=== PATIENT | female | born 1990 | race African-American/Black ===

== ENCOUNTER 2023-12-21 09:54 | Emergency (ER) | payer OTHER, SELFPAY ==
[2023-12-21 09:56] VITALS: BP 168/108; PULSE 95; RESP 18; TEMP 36.6; O2SAT 100
--- NOTE | 2023-12-21 10:24 | ED.EYEPROB ---
HPI - Eye Problem General Chief complaint: Eye Problems Stated complaint: left eye swelling Time Seen by Provider: 12/21/23 10:14 History of Present Illness HPI Narrative: 33-year-old female presents to emergency department for left eyelid swelling that started this morning. Patient states a few days ago she developed 2 styes to her left eyelid and then this morning woke up with a generalized swelling to her eyelid. She is reporting some tenderness to the lid but denies pain in her eye, pain with extraocular movements, eye redness. She is reporting some clear tearing from the eyelid. She denies fever, itchiness, vision changes. Related Data Home Medications Medication Instructions Recorded Confirmed metformin 500 mg tablet,extended ea PO 11/06/22 04/09/23 release 24 hr dulaglutide 4.5 mg/0.5 mL 4.5 mg subcut WEEKLY 02/26/23 04/09/23 [facility] Allergies Allergy/AdvReac Type Severity Reaction Status Date / Time No Known Allergies Allergy Verified 04/09/23 10:02 Review of Systems Review of Systems: CONSTITUTIONAL: Denies fever, chills, or sweats. EYES: See HPI ENT: Denies rhinorrhea, congestion, sore throat, or otalgia. CARDIOVASCULAR: Denies chest pain, palpitations, or edema. RESPIRATORY: Denies cough or dyspnea. GASTROINTESTINAL: Denies abdominal pain, nausea, vomiting, or diarrhea. GENITOURINARY: Denies dysuria or hematuria. SKIN: Denies rash or itching. MUSCULOSKELETAL: Denies back pain, joint pain, or myalgia. NEUROLOGIC: Denies headache, numbness, or weakness. PSYCHIATRIC: Denies anxiety or depression. [facility] Past Medical History Medical History Asthma Diabetes Family History Family History Grandparent Asthma Diabetes mellitus Hypertension Daughter Asthma Sibling Hypertension Social History Social History Social History: caffeine-occasionally Smoking status: Former smoker Tobacco type: e-cigarettes/vaping Alcohol intake: never Substance use: never Lack of Transportation: No Lack of Food: Never True Current Housing: Decline to Answer Concerned About Future Housing: No Difficulty Paying Gas/Electric Bills: YES Difficulty Paying for Meds: No Currently Unemployed: No Education: High School Diploma/GED Difficulty w/ Childcare or Family Care: No Exam Narrative: GENERAL: Well-appearing, well-nourished, and in no acute distress. HEAD: Normocephalic, atraumatic. EYES: PERRLA and EOMI. Left eye upper lid edematous with a hordeolum to the mid lash line and outer lash line. No crusting to lash line. No proptosis or chemosis, no erythema to the conjunctivae. No surrounding erythema. No pain with EOMs. No ophthalmoplegia or globe displacement. Fluorescein staining shows no abrasions or lesions. ENT: Nares clear, no rhinorrhea or epistaxis. Mucous membranes moist. Bilateral TMs are vidal nonbulging with normal canals. NECK: Supple. CHEST: Clear to auscultation. No respiratory distress. HEART: Regular rate and rhythm. No murmur heard. Normal peripheral pulses. EXTREMITIES: Normal range of motion. No edema. SKIN: Warm, dry, no rash. NEURO: No focal deficits. Alert and oriented x3 Course Vital Signs Vital signs: Vital Signs Temperature 97.8 F 12/21/23 09:56 Pulse Rate 95 12/21/23 09:56 Respiratory Rate 18 12/21/23 09:56 Blood Pressure 168/108 H 12/21/23 09:56 Pulse Oximetry 100 12/21/23 09:56 Oxygen Delivery Room Air 12/21/23 09:56 Temperature 97.8 F 12/21/23 09:56 Pulse Rate 95 12/21/23 09:56 Respiratory Rate 18 12/21/23 09:56 Blood Pressure 168/108 H 12/21/23 09:56 Pulse Oximetry 100 12/21/23 09:56 Oxygen Delivery Room Air 12/21/23 09:56 MDM - Eye Problem MDM Narrative Medical decision making na
[2023-12-21 11:25] VITALS: BP 123/71; PULSE 65; RESP 18; O2SAT 100
[2023-12-21 11:29] VITALS: BP 118/69; PULSE 71; RESP 17; TEMP 36.8; O2SAT 100
== END 2023-12-21 11:29 | disposition home or self-care (01) ==
PROVIDERS: Emergency Provider Physician Assistant; PCP Physician Assistant
DX: H01.004 Unspecified blepharitis left upper eyelid (principal); H00.014 Hordeolum externum left upper eyelid; E11.9 Type 2 diabetes mellitus without complications; J45.909 Unspecified asthma, uncomplicated; Z87.891 Personal history of nicotine dependence; Z79.84 Long term (current) use of oral hypoglycemic drugs; Z79.85 Long-term (current) use of injectable non-insulin antidiabetic drugs
CPT/HCPCS: 99283

== ENCOUNTER 2025-02-04 11:13 | Outpatient (CLI) | payer OTHER, SELFPAY ==
--- OUTSIDE RECORDS SUMMARY | 2025-02-04 11:16 | XMS_ITS | Data Portability ---
Author Organization [facility] [email or web address], Main Office Address [address] [place] [address] Assessment No assessment recorded. Plan of Treatment Reminders Order Date Submit Date Provider Last Modified By Organization Details Last Modified Time Details Appointments None recorded. Lab hemoglobin A1C, fingerstick 2022 023 [email or web address] 200 [facility] [address] Nick[address] Barriga, [place], [address], 3 18:03:20 Referral None recorded. Procedures None recorded. Surgeries None recorded. Imaging None recorded. Medication Orders erythromyci n 5 mg/gram (0.5 %) eye ointment 2023 024 [facility] [address], [address], 4 10:52:37 phentermine 15 mg capsule 2023 024 [facility] [address], [address], 4 11:20:16 ciprofloxac in 500 mg tablet 2023 024 [id number], [address] [facility], [place], [place], [id number], 4 11:07:27 alcohol swabs 2023 024 [facility] [address], [address], 4 15:43:45 Trulicity 3 mg/0.5 mL subcutaneou s pen injector 2023 024 [facility] [address] In [facility], [address] [place] [address], [address], 4 15:45:00 phentermine 37.5 mg tablet 2023 024 [facility] [address] In [facility], [address] [place] [address], [address], 4 15:40:42 phentermine 37.5 mg tablet 2022 023 [facility] [address] In [facility], [address] [place] [address], [address], 3 15:47:06 phentermine 37.5 mg tablet 2022 023 [facility] [address] In [facility], [address] [place] [address], [address], 3 15:48:23 Patient TargetsNo targets recorded. Patient Instructions Encounter Date Encounter Id Patient Instructions Last Modified By Organization Details Last Modified Time 08/15/2023 [id number] walk in here in5 to 7 days , we will check BP free [email or web address] Not available 08/27/2023 18:04:01 Reason for Referral None Reported. Results Created Date Observation Date Name Description Value Unit Range Abnormal Flag Note LastModifiedBy Organization Detail LastModifiedTime 08/15/2008/15/2023 hemog lobin A1C, finge rstic k HgbA1C 5.6 Not Available [facility] [address] Barriga, [place], [address], 08/15/2023 15:48:51 05/08/20 24 05/08/2024 COMPR EHENS LAWRENCE METAB OLIC PANEL sodium 135 mmol/ L 137-14 5 low Not Available [facility] (Lab) [address] [place], [address], 05/08/2024 10:02:50 05/08/20 24 05/08/2024 COMPR EHENS LAWRENCE METAB OLIC PANEL potassium 3.8 mmol/ L 3.5-5. 1 Not Available [facility] (Lab) [address] [place], [address], 05/08/2024 10:02:50 05/08/20 24 05/08/2024 COMPR EHENS LAWRENCE METAB OLIC PANEL chloride 107 mmol/ L 98-107 Not Available [facility] (Lab) [address] [place], [address], 05/08/2024 10:02:50 05/08/20 24 05/08/2024 COMPR EHENS LAWRENCE METAB OLIC PANEL carbon dioxide 26 mmol/ L 22-30 Not Available [facility] (Lab) [address] [place], [address], 05/08/2024 10:02:50 05/08/20 24 05/08/2024 COMPR EHENS LAWRENCE METAB OLIC PANEL anion gap 5.8 mmol/ L 14-22 low Not Available [facility] (Lab) [address] [place], [address], 05/08/2024 10:02:50 05/08/20 24 05/08/2024 COMPR EHENS LAWRENCE METAB OLIC PANEL glucose 95 mg/dL 70-99 Not Available [facility] (Lab) [address] [place], [address], 05/08/2024 10:02:50 05/08/20 24 05/08/2024 COMPR EHENS LAWRENCE METAB OLIC PANEL BUN 12 mg/dL 8-19 Not Available [facility] (Lab) [address] [place], [address], 05/08/2024 10:02:50 05/08/20 24 05/08/2024 COMPR EHENS LAWRENCE METAB OLIC PANEL creatinine 0.69 mg/dL 0.66-1 .25 Not Available [facility] (Lab) [address] [place], [address], 05/08/2024 10:02:50 05/08/20 24 05/08/2024 COMPR EHENS LAWRENCE METAB OLIC PANEL GFR >60 Refer ence Range : [place] ge GFR Healt hy Adult : >60 mL/mi n/1.7 3 m2 Chron ic Kidne y Disea se: 15-60 mL/mi n/1.7 3 m2 Kidne y Failu re: <15/m L/min /1.73 m2 www.n iddk. nih.g ov The MDRD study equat ion has not been valid ated in child freedom <18 years of age; pregn ant women ; the elder ly >85 years of age; or in some racia l or ethni c subgr oups, such as Hisar nics. Outsi de the valid ated tiffany eters , estim ated GFR is less accur ate, requi ring clini fernandez judgm ent on a case- by-ca se basis . Clini fernandez inter preta tion for other races and ages must be made by the clini danyell. The MDRD study equat ion has not been valid ated for the evalu ation of serum creat inine relat ed to nutri nubia l statu s or medic ation usage . For perso ns <18 years of age, a pedia tric GFR calcu lator is avail able on the F websi te: https ://ww w.kid girish.o rg/pr ofess ional s/kdo qi/gf r_cal culat or Not Available [facility] (Lab) [address] [place], [address], 05/08/2024 10:02:50 05/08/20 24 05/08/2024 COMPR EHENS LAWRENCE METAB OLIC PANEL alkaline phosphatase 56 U/L 38-126 Not Available [facility] (Lab) [address] [place], [address], 05/08/2024 10:02:50 05/08/20 24 05/08/2024 COMPR EHENS LAWRENCE METAB OLIC PANEL alanine aminotransfe rase 15 U/L 0-35 Not Available [facility] (Lab) [address] [place], [address], 05/08/2024 10:02:50 05/08/20 24 05/08/2024 COMPR EHENS LAWRENCE METAB OLIC PANEL aspartate aminotransfe rase 23 U/L 15-37 Not Available [facility] (Lab) [address] [place], [address], 05/08/2024 10:02:50 05/08/20 24 05/08/2024 COMPR EHENS LAWRENCE METAB OLIC PANEL bilirubin, total 0.50 mg/dL 0.20-1 .30 Not Available [facility] (Lab) [address] [place], [address], 05/08/2024 10:02:50 05/08/20 24 05/08/2024 COMPR EHENS LAWRENCE METAB OLIC PANEL calcium 8.6 mg/dL 8.4-10 .2 Not Available [facility] (Lab) [address] [place], [address], 05/08/2024 10:02:50 05/08/20 24 05/08/2024 COMPR EHENS LAWRENCE METAB OLIC PANEL total protein 6.9 g/dL 6.3-8. 2 Not Available [facility] (Lab) [address] [place], [address], 05/08/2024 10:02:50 05/08/20 24 05/08/2024 COMPR EHENS LAWRENCE METAB OLIC PANEL albumin 3.7 g/dL 3.4-5. 0 Not Available [facility] (Lab) [address] [place], [address], 05/08/2024 10:02:50 05/08/20 24 05/08/2024 COMPR EHENS LAWRENCE METAB OLIC PANEL globulin 3.2 g/dL 2.6-4. 2 Not Available [facility] (Lab) [address] [place], [address], 05/08/2024 10:02:50 05/08/20 24 05/08/2024 COMPR EHENS LAWRENCE METAB OLIC PANEL A/G ratio 1.2 ratio 1.0-2. 0 Not Available [facility] (Lab) [address] [place], [address], 05/08/2024 10:02:50 05/08/20 24 05/08/2024 LIPID PANEL cholesterol 163 mg/dL 140-19 9 NIH BENJY NSUS RECOM MENDA TION FOR JACOB STERO L: ADULT CHILD LOW RISK: <200 <170 BORDE RLINE : <200- 239 ----- HIGH RISK: >240 >200 Not Available [facility] (Lab) [address] [place], [address], 05/08/2024 10:02:51 05/08/20 24 05/08/2024 LIPID PANEL triglyceride s 35 mg/dL 0-150 NIH BENJY NSUS REPOR T RECOM MENDA TION FOR TRIGL YCERI ROMEL: ADULT CHILD LOW RISK: <150 ----- BODER LINE: 150-1 99 ----- HIGH RISK: >200 ----- Not Available [facility] (Lab) [address] [place], [address], 05/08/2024 10:02:51 05/08/20 24 05/08/2024 LIPID PANEL HDL cholesterol 60 mg/dL 40- Not Available [facility] (Lab) [address] [place], [address], 05/08/2024 10:02:51 05/08/20 24 05/08/2024 LIPID PANEL LDL cholesterol, calculated 96 mg/dL 0-130 NIH BENJY NSUS REPOR T RECOM MENDA TIONS FOR LDL: ADULT CHILD LOW RISK <130 <110 (OPTI MAL LDL) <100 ----- BORDE RLINE : 130-1 59 ----- HIGH RISK: >160 >130 A TRIGL YCERI DE RESUL T >400 INVAL IDATE S THE CALCU LATIO N FOR LDL FRACT IONAT ION - THE LDL RESUL T WILL NOT BE REPOR MARISELA. Not Available [facility] (Lab) [address] [place], [address], 05/08/2024 10:02:51 05/08/20 24 05/08/2024 CBC/C OMPLE TE BLD COUNT W/DIF F white blood cells 6.1 x10'3 /uL 4.2-10 .8 Not Available [facility] (Lab) [address] [place], [address], 05/08/2024 10:02:53 05/08/20 24 05/08/2024 CBC/C OMPLE TE BLD COUNT W/DIF F red blood cells 4.23 x10'6 /uL 3.80-5 .20 Not Available [facility] (Lab) [address] [place], [address], 05/08/2024 10:02:53 05/08/20 24 05/08/2024 CBC/C OMPLE TE BLD COUNT W/DIF F hemoglobin 10.8 g/dL 12.0-1 5.6 low Not Available [facility] (Lab) [address] [place], [address], 05/08/2024 10:02:53 05/08/20 24 05/08/2024 CBC/C OMPLE TE BLD COUNT W/DIF F hematocrit 34.0 % 35.7-4 5.7 low Not Available [facility] (Lab) [address] [place], [address], 05/08/2024 10:02:53 05/08/20 24 05/08/2024 CBC/C OMPLE TE BLD COUNT W/DIF F mean red cell volume 80.4 fL 82.0-9 9.0 low Not Available [facility] (Lab) [address] [place], [address], 05/08/2024 10:02:53 05/08/20 24 05/08/2024 CBC/C OMPLE TE BLD COUNT W/DIF F mean red cell hemoglobin 25.5 pg 27.0-3 3.0 low Not Available [facility] (Lab) [address] [place], [address], 05/08/2024 10:02:53 05/08/20 24 05/08/2024 CBC/C OMPLE TE BLD COUNT W/DIF F mean RBC HGB concentratio n 31.8 g/dL 31.0-3 6.0 Not Available [facility] (Lab) [address] [place], [address], 05/08/2024 10:02:53 05/08/20 24 05/08/2024 CBC/C OMPLE TE BLD COUNT W/DIF F red cell distribution width 16.2 % 11.8-1 5.5 high Not Available [facility] (Lab) [address] [place], [address], 05/08/2024 10:02:53 05/08/20 24 05/08/2024 CBC/C OMPLE TE BLD COUNT W/DIF F platelets 246 x10'3 /uL 150-40 0 Not Available [facility] (Lab) [address] [place], [address], 05/08/2024 10:02:53 05/08/20 24 05/08/2024 CBC/C OMPLE TE BLD COUNT W/DIF F mean platelet volume 11.5 fL 9.0-12 .4 Not Available [facility] (Lab) [address] [place], [address], 05/08/2024 10:02:53 05/08/2005/08/2024 CBC/C OMPLE TE BLD COUNT W/DIF F neutrophils 65.9 % 39.0-7 2.0 Not Available [facility] (Lab) [address] [place], [address], 05/08/2024 10:02:53 05/08/20 24 05/08/2024 CBC/C OMPLE TE BLD COUNT W/DIF F lymphocytes 22.6 % 16.0-4 7.0 Not Available [facility] (Lab) [address] [place], [address], 05/08/2024 10:02:53 05/08/2005/08/2024 CBC/C OMPLE TE BLD COUNT W/DIF F monocytes 8.1 % 5.0-12 .0 Not Available [facility] (Lab) [address] [place], [address], 05/08/2024 10:02:53 05/08/2005/08/2024 CBC/C OMPLE TE BLD COUNT W/DIF F eosinophils 2.6 % 1.0-7. 0 Not Available [facility] (Lab) [address] [place], [address], 05/08/2024 10:02:53 05/08/2005/08/2024 CBC/C OMPLE TE BLD COUNT W/DIF F basophils 0.8 % 0.0-2. 0 Not Available [facility] (Lab) [address] [place], [address], 05/08/2024 10:02:53 05/08/2005/08/2024 CBC/C OMPLE TE BLD COUNT W/DIF F neutrophils, absolute count 4.00 x10'3 /uL 1.5-8. 0 Not Available [facility] (Lab) [address] [place], [address], 05/08/2024 10:02:53 05/08/20 24 05/08/2024 CBC/C OMPLE TE BLD COUNT W/DIF F lymphocytes, absolute count 1.37 x10'3 /uL 1.07-3 .43 Not Available [facility] (Lab) [address] [place], [address], 05/08/2024 10:02:53 05/08/20 24 05/08/2024 CBC/C OMPLE TE BLD COUNT W/DIF F monocytes, absolute count 0.49 x10'3 /uL 0.29-0 .99 Not Available [facility] (Lab) [address] [place], [address], 05/08/2024 10:02:53 05/08/20 24 05/08/2024 CBC/C OMPLE TE BLD COUNT W/DIF F eosinophils, absolute count 0.16 x10'3 /uL 0.02-0 .53 Not Available [facility] (Lab) [address] [place], [address], 05/08/2024 10:02:53 05/08/20 24 05/08/2024 CBC/C OMPLE TE BLD COUNT W/DIF F basophils, absolute count 0.05 x10'3 /uL 0.01-0 .08 Not Available [facility] (Lab) [address] [place], [address], 05/08/2024 10:02:53 05/08/20 24 05/08/2024 CBC/C OMPLE TE BLD COUNT W/DIF F large platelets OCCASI ONAL Not Available [facility] (Lab) [address] [place], [address], 05/08/2024 10:02:53 05/08/20 24 05/08/2024 CBC/C OMPLE TE BLD COUNT W/DIF F giant platelets OCCASI ONAL Not Available [facility] (Lab) [address] [place], [address], 05/08/2024 10:02:53 05/08/20 24 05/08/2024 TSH thyroid-stim ulating hormone 0.578 uIU/m L 0.465- 4.680 Not Available [facility] (Lab) [address] [place], [address], 05/08/2024 10:02:53 05/08/20 24 05/08/2024 HEMOG LOBIN A1C HA1C 5.5 % 4.0-6. 0 Diabe kavya Scree rosi Crite justine: <5.7% Consi stent with absen ce of diabe kavya 5.7-6 .4% Consi stent with incre ased risk for diabe kavya (pred iabet es) >OR=6 .5% Consi stent with diabe kavya REFER ENCE: Diabe kavya Care 2016, 39(Palma ppl.1 ):s13 -s22 Not Available [facility] (Lab) [address] [place], [address], 05/08/2024 18:23:39 05/08/20 24 05/08/2024 MICRO ALBUM N RNDM W/CRE AT RATIO ur creat 291.40 mg/dL REFER ENCE RANGE NOT ESTAB LISHE D FOR RANDO M URINE CREAT ININE Not Available [facility] (Lab) [address] [place], [address], 05/08/2024 18:23:41 05/08/20 24 05/08/2024 MICRO ALBUM N RNDM W/CRE AT RATIO microalbumin , urine 11.7 mg/L 0.0-16 .6 Not Available [facility] (Lab) [address] [place], [address], 05/08/2024 18:23:41 05/08/20 24 05/08/2024 MICRO ALBUM N RNDM W/CRE AT RATIO microalbumin /creatinine ratio 4 mcg/m g 0-29 THE AMERI CAN DIABE KAVYA ASSOC IATIO N DEFIN ES ABNOR MALIT IES IN ALBUM IN EXCRE TION FOLLO WS: CATEG ORY RESUL T (MCG/ MG CREAT ININE ) BETTIE L <30 MICRO ALBUM INURI A 30-29 9 CLINI FERNANDEZ ALBUM INURI A > OR = 300 THE ADA RECOM MENDS THAT 2 OF 2 SPECI MENS COLLE CTED WITHI N A 3- TO 6-MON TH PERIO D BE ABNOR MAL BEFOR E CONSI KHAI G A PATIE NT TO HAVE CROSS ED ONE OF THESE DIAGN OSTIC THRES HOLDS . REFER ENCE: DIABE KAVYA CARE, VOL. 26: S94-S 96, JANUA RY 2002 Not Available [facility] (Lab) [address] [facility], [place], [address], 05/08/2024 18:23:41 Result Notes None recorded. Problems Name Problem SNOMED Code Status Onset Date Resolution Date Notes Provider Name and Address Organization Details Recorded Time Impacted cerumen of bilateral ears 59912610942 68801 Completed 201709/04/2019 Not Available [facility] 3 20:25:49 Morbid obesity 902138861 Active 2017 Not Available [facility] 3 20:25:49 Thoracic back pain 565113977 Completed 201809/04/2019 Not Available [facility] 3 20:25:49 Low back pain 182381309 Completed 201809/04/2019 Not Available [facility] 3 20:25:50 Type 2 diabetes mellitus without complicat ion 832717601 Active 2019 Not Available [facility] 3 20:25:50 Influenza vaccinati on declined 907686854 Active 2020 Not Available [facility] 3 20:25:50 Pain of left hand 31361769854 9103 Completed 201709/04/2019 Not Available [facility] 3 20:25:50 Vitamin D deficienc y 48325417 Active 2017 Not Available [facility] 3 20:25:50 Macromast ia 445198639 Completed 201809/04/2019 Hiram Barajas MD [address], [place], [address] , [employer] 3 15:36:54 Newly diagnosed diabetes 321565595 Completed 201906/22/2020 Not Available [facility] 3 20:25:50 Candidias is of skin 03098325 Completed 201709/04/2019 Not Available [facility] 3 20:25:50 Prediabet es 237176847 Completed 201709/10/2019 Not Available [facility] 3 20:25:51 Ex-smoker 3939796 Active 2017 Not Available [facility] 3 20:25:51 Anxiety 10852139 Active 2022 Hiram Barajas MD [address], [address], [place], [address] , [facility] 3 21:28:24 Macromast ia 031598092 Active 2022 Hiram Barajas MD [address], [place], [address] , [facility] 3 15:36:54 External hordeolum 7845215 Active 2023 AUGIE Yañez [address], [place], [address] , [facility] 4 15:52:37 Screening for malignant neoplasm of cervix Active 2023 AUGIE Yañez [address], [place], [address] , [facility] 4 11:20:53 Anemia 255675153 Active 2023 AUGIE Yañez [address], [place], [address] , [facility] 4 15:48:28 Problem Notes None recorded. Procedures Surgical History Date Name Laterality Status Provider Name and Address Organization Details Recorded Time 05/04/20 19 Tonsillectomy completed Not Available [facility] 2022 20:24:11 tooth extraction completed Mc Griffin MA [place] [facility] [place] [employer] [facility] 08/15/2023 15:31:35 Imaging Results None recorded. Procedure Notes None recorded. Medical Equipment None Reported. Allergies No known drug allergies Medications Name Sig Start Date Stop Date Status Note LastModified by Organization Details LastModified Time amoxicilli n 500 mg capsule 09/12 completed Not Available Not Available Not Available ketoconazo le 2 % shampoo APPLY TO THE AFFECTED AREA(S), LATHER, LEAVE IN PLACE FOR 5 MINUTES, AND THEN RINSE OFF WITH WATER BY TOPICAL ROUTE TWICE WEEKLY active Not Available Not Available No t Available azithromyc in 250 mg tablet TAKE 2 TABLETS (500 MG) BY ORAL ROUTE ONCE DAILY FOR 1 DAY THEN 1 TABLET (250 MG) BY ORAL ROUTE ONCE DAILY FOR 4 DAYS 08/08 completed Not Available Not Available Not Available ibuprofen 800 mg tablet 09/04 completed Not Available Not Available Not Available fluconazol e 150 mg tablet Take 1 po every 3 days x 2 doses 04/12 completed Not Available Not Available Not Available acetaminop hen 120 mg-codeine 12 mg/5 mL oral solution 09/04 completed Not Available Not Available Not Available methylpred nisolone 4 mg tablet TAKE 1 TABLET BY MOUTH TWICE A DAY 04/18 completed Not Available Not Available Not Available Debrox 6.5 % ear drops INSTILL 4 DROPS INTO AFFECTED EAR(S) BY OTIC ROUTE 2 TIMES PER DAY 09/18 completed Not Available Not Available Not Available phentermin e 15 mg capsule Take 1 capsule every day by oral route before meals for 30 days. 2023 active [address] Not Available Not Available Not Available metronidaz ole 500 mg tablet Take 1 tablet every 12 hours by oral route for 7 days. 09/04 completed Not Available Not Available Not Available phentermin e 37.5 mg tablet TAKE 1 TABLET BY MOUTH EVERY DAY FOR 30 DAYS active Not Available Not Available No t Available ciprofloxa gifty 500 mg tablet Take 1 tablet every 12 hours by oral route for 10 days, for stye left upper lid. 02/17 completed Not Available Not Available Not Available hydrocorti sone-aceti c acid 1 %-2 % ear drops INSTILL 2 DROPS INTO AFFECTED EAR(S) BY OTIC ROUTE 4 TIMES PER DAY 06/07 completed Not Available Not Available Not Available betamethas one valerate 0.1 % topical cream APPLY 1 APPLICAT ION TOPICALL Y 2 TO 3 TIMES PER DAY NEEDED FOR ITCHING, MAX 3 TIMES DAILY active Not Available Not Available No t Available erythromyc in 5 mg/gram (0.5 %) eye ointment APPLY 1 CM RIBBON INTO THE LOWER CONJUNCT IVAL SAC(S) INTO AFFECTED EYE AT BEDTIME active Not Available Not Available No t Available nystatin 100,000 unit/gram topical cream APPLY TO THE AFFECTED AREA(S) BY TOPICAL ROUTE 2 TIMES PER DAY 09/04 completed Not Available Not Available Not Available diclofenac sodium 75 mg tablet,del ayed release Takes as needed wrist pain 11/03 completed Not Available Not Available Not Available alcohol swabs APPLY 1 PAD EVERY DAY BY TOPICAL ROUTE FOR 30 DAYS. active Not Available Not Available No t Available ergocalcif michael (vitamin D2) 1,250 mcg (50,000 unit) capsule TAKE 1 CAPSULE BY MOUTH EVERY 7 DAYS REASONS: VITAMIN D DEFICIEN CY active Not Available Not Available No t Available methylpred nisolone 4 mg tablets in a dose pack Use as directed 08/08 completed Not Available Not Available Not Available metformin ER 500 mg tablet,ext ended release 24 hr TAKE 1 TABLET BY MOUTH TWICE A DAY active Not Available Not Available No t Available amoxicilli n 875 mg-potassi um clavulanat e 125 mg tablet 09/04 completed Not Available Not Available Not Available neomycin-p olymyxin-h ydrocort 3.5 mg-10,000 unit/mL-1 % ear drops,susp INSTILL 4 DROPS INTO THE EAR(S) EVERY 8 HOURS 12/24 completed Not Available Not Available Not Available ciprofloxa gifty 0.3 %-dexameth asone 0.1 % ear drops,susp ension INSTILL 4 DROPS INTO THE EAR(S) EVERY 12 HOURS 12/24 completed Not Available Not Available Not Available Vinate One 60 mg iron-1 mg tablet 09/04 completed Not Available Not Available Not Available Se-Jaz 19 (with docusate) 29 mg iron-1 mg-25 mg tablet 09/04 completed Not Available Not Available Not Available OneTouch Verio test strips USE 1 STRIP TO TEST BLOOD SUGAR ONCE DAILY active Not Available Not Available No t Available Trulicity 1.5 mg/0.5 mL subcutaneo us pen injector INJECT 1.5 MG UNDER THE SKIN ONE TIME PER WEEK- active Not Available Not Available No t Available Trulicity 0.75 mg/0.5 mL subcutaneo us pen injector INJECT 0.75MG UNDER THE SKIN ONE TIME PER WEEK 06/26 completed Not Available Not Available Not Available OneTouch Verio Flex Meter USE DIRECTED TO TEST ONCE DAILY 2023 active Not Available Not Available Not Avai lable OneTouch Delica Plus Lancet 33 gauge USE DIRECTED TO TEST ONCE DAILY active Not Available Not Available No t Available Trulicity 3 mg/0.5 mL subcutaneo us pen injector INJECT 3 MG UNDER THE SKIN ONCE EVERY WEEK 2023 active Not Available Not Available Not Avai lable Ozempic 0.25 mg or 0.5 mg (2 mg/3 mL) subcutaneo us pen injector Inject by subcutan eous route for 28 days. active Not Available Not Available No t Available Vitals Date Recorded Body height Body mass index (BMI) Body weight Body temperature Heart rate Oxygen saturation Oxygen saturation in Arterial blood by Pulse oximetry Respiratory rate Systolic blood pressure Diastolic blood pressure Provider Name and Address Organization Details Last Updated DateTime 4 165.1 cm 41.1 kg/m2 983761. 32 g 98.2 [degF] 113 /min 98 % 98 % 16 /min 128 mm[Hg] 84 mm[Hg] Kya Hauser RN [facility] [employer] [facility] 4 15:34:48 Date Recorded Body height Body mass index (BMI) Body weight Body temperature Respiratory rate Heart rate Oxygen saturation Oxygen saturation in Arterial blood by Pulse oximetry Systolic blood pressure Diastolic blood pressure Provider Name and Address Organization Details Last Updated DateTime 4 165.1 cm 39.1 kg/m2 618406. 21 g 98.6 [degF] 16 /min 112 /min 98 % 98 % 110 mm[Hg] 80 mm[Hg] Tricia Bravo RN [facility] [employer] [facility] 4 15:46:13 Date Recorded Body height Body mass index (BMI) Body weight Body temperature Heart rate Oxygen saturation Oxygen saturation in Arterial blood by Pulse oximetry Respiratory rate Systolic blood pressure Diastolic blood pressure Provider Name and Address Organization Details Last Updated DateTime 4 165.1 cm 38.8 kg/m2 260493. 02 g 98.4 [degF] 93 /min 97 % 97 % 16 /min 124 mm[Hg] 84 mm[Hg] Tricia Bravo RN [facility] [employer] [facility] 4 11:09:31 Date Recorded Body height Body mass index (BMI) Body weight Body temperature Heart rate Oxygen saturation Oxygen saturation in Arterial blood by Pulse oximetry Systolic blood pressure Diastolic blood pressure Provider Name and Address Organization Details Last Updated DateTime 3 165.1 cm 47.9 kg/m2 852869. 6 g 98.1 [degF] 72 /min 97 % 97 % 126 mm[Hg] 88 mm[Hg] Leana rosario CMA [facility] [employer] [facility] 3 15:34:22 Date Recorded Body height Body mass index (BMI) Body weight Body temperature Heart rate Oxygen saturation Oxygen saturation in Arterial blood by Pulse oximetry Systolic blood pressure Diastolic blood pressure Provider Name and Address Organization Details Last Updated DateTime 3 165.1 cm 43.4 kg/m2 011749. 61 g 98 [degF] 96 /min 96 % 96 % 144 mm[Hg] 90 mm[Hg] Edilma Griffin MA [facility] [employer] [facility] 3 15:30:46 Social History Question Answer Notes LastModified by Organizat ion Details LastModified Time Tobacco Smoking Status Former Smoker quit 2015 Joana urbina [facility] 08/15/2023 15:20:58 What Is Your Level Of Caffeine Consumption? Occasional [id number] Information not available 11/01/2022 How Much Tobacco Do You Chew? None [id number] Information not available 11/01/2022 What Type Of Diet Are You Following? REGULAR [id number] Information not available 11/01/2022 Which Illicit Or Recreational Drugs Have You Used? None [email or web address] Information not available 08/15/2023 At What Age Did You Start Smoking Tobacco? 19 [email or web address] Information not available 08/15/2023 Sex: Unknown Functional Status Question Answer Note LastModified by Organizat ion Details LastModified Time What is your level of alcohol consumption? Occasional [id number] Information not available 11/01/2022 What is your occupation? [employer] [email or web address] Information not available 08/15/2023 What is your exercise level? Occasional [id number] Information not available 11/01/2022 Mental Status None recorded. Family History Relationship Description Onset Age of this Age Resolved Age Notes LastModified by Organization Details LastModified Time Maternal Grandmother Diabetes mellitus [id number] Not available 11/01/2022 20:24:13 Medical History Condition Response BLINDNESS N RHEUMATIC FEVER N KIDNEY STONES N BLADDER PROBLEMS N MRSA N OTHER # 1 N POLIO N LUNG DISEASE/DISORDER N RADIATION / CHEMOTHERAPY N COPD N Other # 2 N BLOOD DISEASES N SURGERY N EAR OR HEARING PROBLEMS N MUMPS N BOWEL PROBLEMS N FEMALE PROBLEMS / INFECTIONS N DEPRESSION (INCLUDING POST ) N STROKE/TIA N THYROID DISEASE N ULCERS N BENIGN PROSTATIC HYPERPLASIA N MEASLES N CERVICALGIA N TB SKIN TEST N MYOCARDIAL INFARCTION N PARAPELGIA N OBESITY N GERD/NAUSEA N ANEURYSM N URINARY/BLADDER/KIDNEY PROBLEMS N CORONARY ARTERY DISEASE (CAD) N MENIERE'S DISEASE N ADDICTION CONCERNS N ENDOMETRIOSIS N USE OF BLOOD THINNERS N SKIN PROBLEMS N EMPHYSEMA N GASTROINTESTINAL DISORDER N MUSCLE,JOINT OR BONE PROBLEMS N GASTROINTESTINAL BLEEDING N BLOOD CLOTS N ASTHMA N CATARACTS N ERECTILE DYSFUNCTION N GI PROBLEMS N CHF N Low Testosterone N NEUROPATHY N INFERTILITY N AIDS/HIV N FRACTURES N CHEMOTHERAPY / RADIATION N VISION/EYE PROBLEMS N LIVER DISEASE N MALE HYPOGONADISM N HYPERTENSION N ANXIETY DISORDER N BLOOD TRANSFUSION N ANEMIA/BLOOD DISORDER N CHRONIC EAR INFECTIONS N BRONCHITIS N TUBERCULOSIS N GLAUCOMA N FOOT PROBLEM N DIVERTICULITIS N CHICKENPOX N SLEEP APNEA N ALLERGIES/HAYFEVER N INFECTIOUS DISEASE N HEART ARRHYTHMIA N PROSTATE N INSOMNIA N HIGH CHOLESTEROL / HYPERLIPIDEMIA N HYPERTHYROIDISM N EYE PROBLEMS N EATING DISORDER N NEUROLOGICAL PROBLEMS N EDEMA N CHRONIC PAIN SYNDROME N HYPOTHYROIDISM N CAROTID BLOCKAGE N CONSTIPATION N BACK / NECK PROBLEMS N HAVE YOU BEEN HOSPITALIZED OR SEEN IN [facility] IN THE PAST YEAR ? N ATHEROSCLEROSIS N BREAST PROBLEMS N DIALYSIS N ECZEMA N FIBROMYALGIA N OSTEOPOROSIS N ARTHRITIS N NO SIGNIFICANT PAST MEDICAL HISTORY N APPENDICITIS N DIABETES, TYPE N BAD TEETH N HEARTBURN / REFLUX N ADD/ADHD N AUTISM SPECTRUM DISORDER (ASD) N HEPATITIS / LIVER DISEASE N PULMONARY DISEASE N GOUT N SLEEP DISORDER N ALZHEIMER'S DISEASE N PAIN N HERPES N DEMENTIA N HEADACHES/MIGRAINES N SEIZURES/EPILEPSY N VASCULAR DISEASE N PACEMAKER N DIZZINESS N HEART DISEASE/HEART PROBLEMS N KIDNEY DISEASE N DEVELOPMENTAL OR BEHAVIORAL DISORDERS N MULTIPLE SCLEROSIS N SCARLET FEVER N MENTAL DISORDER/ILLNESS N CARDIAC ARRHYTHMIA N CANCER: SPECIFY N PNEUMONIA N ATRIAL FIBRILLATION N Gall Stones N PULMONARY EMBOLISM N AUTOIMMUNE DISEASE N Gynecological HistoryNo gynecological history recorded. Obstetrics History GPAL:G 0 P 0 0 0 0 Immunizations Vaccine Type Date Status Note Provider Nam e and Address Organization Details Recorded Time COVID-19, mRNA, LNP-S, PF, 30 mcg/0.3 mL dose 04/07/2022 completed Leana Mata CMA null, [facility] 05/16/2023 15:34:39 SARS-COV-2 (COVID-19) vaccine, UNSPECIFIED 06/03/2021 completed Leana Mata CMA null, [facility] 05/16/2023 15:34:39 SARS-COV-2 (COVID-19) vaccine, UNSPECIFIED 05/13/2021 completed Leana Mata CMA null, [facility] 05/16/2023 15:34:39 Past Encounters Encounter ID Performer Location Encounter Start Date Encounter Closed Date Diagnosis/Indication Diagnosis SNOMED-CT Code Diagnosis ICD10 Code Diagnosis Note [id number] [facility] ic_[facility] [place] [address] 11/30/2020 00:00:00 11/30/2020 11:34:01 [id number] Hiram Barajas MD [facility] [address] [place] [address] 04/13/2021 00:00:00 04/13/2021 15:18:48 [id number] Hiram Barajas MD [facility] [place] [address] [place] [address] 06/07/2021 00:00:00 06/07/2021 16:27:31 [id number] [facility] [place] [facility] , [place] [address] 04/12/2022 00:00:00 04/12/2022 17:08:51 [id number] [facility] [place] [facility] , [place] [address] 06/01/2022 00:00:00 06/01/2022 16:15:18 [id number] Hiram Barajas MD [facility] [place] [address] [place] [address] [place] [address] 08/08/2022 00:00:00 08/08/2022 19:55:11 [id number] Hiram Barajas MD [facility] [place] [address] [place] [address] y , [place] [address] 09/05/2022 00:00:00 09/05/2022 20:15:32 [id number] Hiram Barajas MD [facility] [place] lloctaviano [address] [place] [address] [place] [address] 12/14/2022 15:50:21 12/14/2022 16:28:05 Anxiety 74597582 F41.9 Pt needs a letter for for an emotional support animal [id number] Hiram Barajas MD [facility] Leatha lloctaviano [address] [place] [address] [place] [address] 04/18/2023 15:21:48 04/18/2023 15:45:19 Macromastia 035828698 N62 44 H is bra size. Morbid obesity 457665079 E66.01 F/u in 1 month [id number] Hiram Barajas MD [facility] Leatha jimenez [address] [place] [address] [place] [address] 05/16/2023 15:19:44 05/16/2023 15:50:14 Morbid obesity 649735236 E66.01 F/u in3 month. Continue weight loss efforts [id number] Hiram Barajas MD [facility] [place] [address] [place] [address] [place] [address] 08/15/2023 15:20:34 08/15/2023 16:00:13 Morbid obesity 713177804 E66.01 Type 2 shakila betes mellitus without complication 852963648 E11.9 [id number] Hiram Barajas MD [facility] [place] [address] [place] [address] [place] [address] 11/14/2023 15:29:00 11/14/2023 15:45:58 Morbid obesity 047894718 E66.01 Type 2 shakila betes mellitus without complication 773093509 E11.9 Anxiety 39562872 F41.9 [id number] El Pedersen MD [facility] [place] [address] [place] [address] [place] [address] 12/25/2023 15:37:19 12/25/2023 16:14:25 External [employer] 5450579 H00.019 Type 2 shakila betes mellitus without complication 076989283 E11.9 Anxiety 35420809 F41.9 Macromastia 840251544 N6 2 Morbid obesity 717785070 E66.01 Vitamin D deficiency 347 53094 E55.9 [id number] El Pedersen MD [facility] [place] [address] [place] [address] [place] [address] 02/18/2024 11:04:00 02/18/2024 11:38:36 External [employer] 1102643 H00.019 Morbid obesity 429071233 E66.01 Screening for malignant neoplasm of cervix 535718099 Z12.4 Anxiety 88221072 F41.9 Health Concerns Section Related Observation LastModified by Organization Detai ls LastModified Time None Recorded Concern Status LastModified by Organization Details LastModified Time None Recorded Advance Directives Directive None Recorded Payers Encounter Date Sequence Insurance Name Policy Number Policy Baez Covered Member ID Baez Member ID Guarantor Name 05/16/2023 1 [facility] ON OR AFTER 03/03/21 (MEDICAID REPLACEMENT - HMO) Thu Fierro [id number] Thu Fierro 08/15/2023 1 [facility] - DOS ON OR AFTER 21 (MEDICAID REPLACEMENT - HMO) Thu Fierro [id number] Thu Fierro 11/14/2023 1 [facility] - DOS ON OR AFTER 21 (MEDICAID REPLACEMENT - HMO) Thu Fierro [id number] Thu Sri 12/25/2023 1 [facility] ON OR AFTER 03/03/21 (MEDICAID REPLACEMENT - HMO) Thu Fierro [id number] Thu Fierro 02/18/2024 1 [facility] ON OR AFTER 03/03/21 (MEDICAID REPLACEMENT - HMO) Thu Fierro [id number] Thu Fierro Notes Date Note Type Note Provider Name and Address Organization Details Recorded Time 05/16/2023 text/html Here for f/u of phentermine. No s/e with this. Is doing well. No issues. Has lost 4#s. Needs a refill of this. Pt is trying to be more active and has an exercise bike she is going to start using. Hiram Barajas MD [address], [employer], [place], [address], [facility] 05/16/2023 20:48:33 08/15/2023 text/html here for refills . . has white coat hypertension AUGIE Yañez [address], [place], [address], [facility] 08/27/2023 18:04:07 11/14/2023 text/html needs a refill AUGIE Yañez [address], [place], [address], [facility] 11/26/2023 21:28:22 12/25/2023 text/html santi rios PA [address], [address], [place], [address], [facility] 01/01/2024 16:11:23 02/18/2024 text/html still has that bob izquierdo PA [address], [facility] [address], [place], [address], [facility] 03/01/2024 10:53:29 OBGyn Episode No OBEpisode recorded.
--- OUTSIDE RECORDS SUMMARY | 2025-02-04 11:16 | XMS_ITS | Clinical Summary ---
Author Organization [facility] Address [address] [facility] [place] [address] Care Team Providers Care Kiln Repairer Name Role Phone Camila Rincon GONZALO-DIGITAL MARKETING SPECIALIST Primary Care Provider + Source Comments [facility],non-owned Affiliates and Associated Physician Practices is amultiple site organization consisting of ambulatory clinics and hospital sitesin [place], [place], [place] and [place]. This disclosure is being madepursuant to the Care Everywhere program and may not contain all information available regarding this patient. Last updated 18.[facility] Allergies No known active allergies Medications * Be aware that medications may not be up to date on this document. Alwaysverify current medications with the patient. Vit-Fe Fumarate-FA ( VITAMIN) 28-0.8 MG tabletIndicati ons: Take 1 Tab by mouth once daily Reasons: Active oxyCODONE-acet aminophen (PERCOCET) 5-325 MG tablet Take 1 Tab by mouth every 4 hours as needed 40 Tab 7 Active Additional Information Patient not taking.Reported on 05/11/2022 ibuprofen (MOTRIN) 600 MG tablet Take 1 Tab by mouth every 6 hours 50 Tab 7 Active Additional Information Patient not taking.Reported on 05/11/2022 metFORMIN (Glucophage) 500 MG tablet Take 500 mg by mouth once daily Active dulaglutide (Trulicity) 0.75 MG/0.5ML injection Inject 0.75 mg subcutaneously every 7 days Active vitamin D, ergocalciferol , (Drisdol) 1.25 MG (07261 UT) capsuleIndicat ions:Vitamin D Deficiency Take 1 (one) capsule by mouth every 7 days Reasons: Vitamin D Deficiency 4 capsule 3 2 Active Active Problems Problem Noted Date Diagnosed Date Rh negative status during 10/02/2016 Immunizations Immunization Administration Dates Next Due Rho D Immune Globulin 11/29/2016,10/02/2016 Family History Medical History Relation Name Comments Diabetes; unknown type Maternal Grandmother Relation Name Status Comments Maternal Grandmother Social History Tobacco Use Types Packs/Day Years Used Date Smoking Tobacco: Former Cigarettes Q uit: 04/2016 Smokeless Tobacco: Never Tobacco Cessation:Counseling Given: No Alcohol Use Standard Drinks/Week Comments No 0 (1 standard drink = 0.6 oz pur e alcohol) occasional Comments No Sex and Gender Information Value Date Recorded Sex Assigned at Not on file Legal Sex Female 5:36 AM SWITCHBOARD AND CONTROL ROOM OPERATOR Gender Identity Not on file Sexual Orientation Not on file Last Filed Vital Signs Vital Sign Reading Time Taken Comments Blood Pressure 118/68 06/13/2022 10:49 AM CDT Pulse 93 06/13/2022 10:49 AM CDT Temperature 36.8 C (98.2 F) 06/13/2022 10:49 AM CDT Respiratory Rate 16 06/13/2022 10:4 9 AM CDT Oxygen Saturation 98% 06/13/2022 10: 49 AM CDT Inhaled Oxygen Concentration - - Weight 138.5 kg (305 lb 6.4 oz) 022 10:49 AM CDT Height 167.8 cm (5' 6.06) 06/13/2022 1 0:49 AM CDT Body Mass Index 49.2 06/13/2022 10:49 AM CDT Plan of Treatment Health Maintenance Due Date Last Done Comments PAP SMEAR 1990 HEPATITIS C SCREENING 03/11/2008 DTAP/TDAP/TD VACCINES (1 - Tdap) 2009 HEPATITIS B VACCINE (1 of 3 - 19+ 3-dose series) 2009 COVID-19 VACCINE ( - 2023-2 5 season) 2024 DEPRESSION SCREENING 09/03/2024 INFLUENZA VACCINE (Season Ended) 2025 ZOSTER VACCINE (1 of 2) 2040 HIV SCREENING Completed 10/02/2016 HIB VACCINE Aged Out No longer eligi ble based on patient's age to complete this topic HPV VACCINE Aged Out No longer eligi ble based on patient's age to complete this topic MENINGOCOCCAL (Group B) VACC INE SHARED DECISION-MAKING Aged Out No longer eligibl e based on patient's age to complete this topic MENINGOCOCCAL GROUPS A/C/Y/W VACCINE Aged Out No longer eligible b ased on patient's age to complete this topic PNEUMOCOCCAL VACCINE Aged Out No long er eligible based on patient's age to complete this topic Procedures Procedure Name Priority Date/Time Associated Diagnosis Comments HIV-1 HIV-2 ANTIBODY W/ REFLX CONFIRM Routine 10/02/2016 11:41 AM SWITCHBOARD AND CONTROL ROOM OPERATOR state, incidental from Last 3 Months or Most Recently Relevant to Health Maintenance Results * HIV-1 HIV-2 ANTIBODY W/ REFLX CONFIRM (10/02/2016 11:41 AM SWITCHBOARD AND CONTROL ROOM OPERATOR) HIV-1/HIV-2 Negative Negative 10/03/2016 12:17 PM SWITCHBOARD AND CONTROL ROOM OPERATOR [facility] ([facility]) Comment: Based on the non-reactive anti-HIV (MARLENY) screen, the HIV Western blot is not indicated and therefore not performed. INTERPRETIVE INFORMATION: HIV-1,-2 w/Reflex to HIV-1 Western Blot This assay should not be used for blood donor screening, associated re-entry protocols, or for screening Human Cells, Tissues and Cellular and Tissue-Based Products (HCT/P). Performed by [facility], [address] [place] [address] [email or web address], Thierry Jacobs MD, Lab. Director Blood BLOOD SPECIMEN / Unknown 10/02/2016 11:41 AM SWITCHBOARD AND CONTROL ROOM OPERATOR 10/02/2016 11:50 AM SWITCHBOARD AND CONTROL ROOM OPERATOR us Kristin Stallings GIS PROGRAMMER-DIGITAL MARKETING SPECIALIST LAB - SEROLOGY ORDERABL ES Final Result [facility] ([facility]) [address] [place] [address], [facility] from Last 3 Months or Most Recently Relevant to Health Maintenance Insurance [facility] Advance Directives * Full Code (Latest Code Status on File) Date Activated Date Inactivated Comments 11/28/2016 3:42 PM 12/01/2016 1:29 PM * Full Code Date Activated Date Inactivated Comments 11/28/2016 3:12 PM 11/28/2016 3:42 PM * Full Code Date Activated Date Inactivated Comments 10/25/2016 9:22 AM 10/25/2016 1:08 PM * Full Code Date Activated Date Inactivated Comments 10/24/2016 2:57 PM 10/24/2016 8:45 PM * Full Code Date Activated Date Inactivated Comments 10/11/2016 12:33 PM 10/11/2016 3:25 PM Care Teams Kiln Repairer Relationship Specialty Start Date End Date Camila Rincon APRN-FRAN [address] [place] [phone] PCP - General Nurse Practitioner 05/11/22
[2025-02-04 11:57] LABS: Hematocrit 37.3 % (37.0-47.0); Hemoglobin 11.9 g/dL (12.0-15.0); Mean Corpuscular HGB Conc 31.9 g/dl (32-36); Mean Corpuscular Hemoglobin 26.6 pg (26-34); Mean Corpuscular Volume 83.3 fl (80-100); Mean Platelet Volume 12.6 fl (7.4-10.4); Platelet Count Result 198 k/mm3 (150-375); Red Blood Count 4.48 M/mm3 (4.2-5.4); Red Cell Distribution Width 16.7 % (11.5-14.5); White Blood Count 5.7 K/mm3 (4.5-10.0)
[2025-02-04 12:12] LABS: Alanine Aminotransferase 17 U/L (6-35); Albumin Level 3.9 g/dL (3.5-5.1); Alkaline Phosphatase 53 U/L (38-126); Anion Gap 4 mmol/L (4-12); Aspartate Amino Transferase 23 U/L (14-36); Bilirubin,Total 0.3 mg/dL (0.2-1.3); Blood Urea Nitrogen 10 mg/dL (7-17); Carbon Dioxide 26 mmol/L (22-30); Chloride 106 mmol/L (98-107); Cholesterol 201 mg/dL (0-200); Estimated Glomerular Filt Rate > 60; Glucose 95 mg/dL (65-110); HDL Direct 71 mg/dL; Potassium 4.2 mmol/L (3.4-5.0); Sodium 136 mmol/L (137-145); Total Protein 7.5 g/dL (6.3-8.2); Triglycerides 49 mg/dL (<150)
[2025-02-04 12:22] LABS: LDL Cholesterol Direct 101 mg/dL
[2025-02-04 12:41] LABS: Thyroid Stimulating Hormone 0.284 uIU/mL (0.465-4.680)
[2025-02-04 16:48] LABS: Creatinine Urine 68.1 mg/dL
[2025-02-04 16:52] LABS: MALB Creatinine Ratio 96.8 mg/g (0-30); Microalbumin Urine Random 65.9 mg/L (0-16.7)
[2025-02-04 18:59] LABS: Hemoglobin A1C 5.1 % (<5.7)
== END 2025-02-04 11:14 | disposition home or self-care (01) ==
LOC: ANHLAB 11:14
PROVIDERS: PCP Nurse Practitioner Adult Health; Visit Provider Nurse Practitioner Adult Health
DX: Z13.9 Encounter for screening, unspecified (principal); E11.9 Type 2 diabetes mellitus without complications
CPT/HCPCS: 36415; 80053; 80061; 82043; 82565; 83036; 84443; 85027

== ENCOUNTER 2025-02-05 10:00 | Outpatient (CLI) | payer OTHER, SELFPAY ==
--- OUTSIDE RECORDS SUMMARY | 2025-02-05 10:57 | XMS_ITS | Clinical Summary ---
Author Organization [facility] Address [address] [facility] [place] [address] Care Team Providers Care Lock Stitch Channeler Name Role Phone Camila Rincon GONZALO-CORK INSULATOR HELPER Primary Care Provider + Source Comments [facility],non-owned Affiliates and Associated Physician Practices is amultiple site organization consisting of ambulatory clinics and hospital sitesin [place], [place], [place] and [place]. This disclosure is being madepursuant to the Care Everywhere program and may not contain all information available regarding this patient. Last updated 18.[facility] Allergies No known active allergies Medications * [...] vitamin D, ergocalciferol , (Drisdol) 1.25 MG (78911 UT) capsuleIndicat ions:Vitamin D Deficiency Take 1 [...] on file Legal Sex Female 5:36 AM SMOKE AND FLAME SPECIALIST Gender Identity Not on file Sexual Orientation [...] W/ REFLX CONFIRM Routine 10/02/2016 11:41 AM SMOKE AND FLAME SPECIALIST state, incidental from Last 3 Months or Most Recently Relevant to Health Maintenance Results * HIV-1 HIV-2 ANTIBODY W/ REFLX CONFIRM (10/02/2016 11:41 AM SMOKE AND FLAME SPECIALIST) HIV-1/HIV-2 Negative Negative 10/03/2016 12:17 PM SMOKE AND FLAME SPECIALIST [facility] ([facility]) Comment: Based on the non-reactive anti-HIV (MARLENY) screen, the HIV Western blot is not indicated and therefore not performed. INTERPRETIVE INFORMATION: HIV-1,-2 w/Reflex to HIV-1 Western Blot This assay should not be used for blood donor screening, associated re-entry protocols, or for screening Human Cells, Tissues and Cellular and Tissue-Based Products (HCT/P). Performed by [employer], [address] [place] [address] [email or web address], Thierry Jacobs MD, Lab. Director Blood BLOOD SPECIMEN / Unknown 10/02/2016 11:41 AM SMOKE AND FLAME SPECIALIST 10/02/2016 11:50 AM SMOKE AND FLAME SPECIALIST us Kristin Stallings [facility] LVN-CORK INSULATOR HELPER LAB - SEROLOGY ORDERABL ES Final Result [facility] ([facility]) [address] [place] [address], [facility] from Last 3 Months or Most Recently Relevant to Health Maintenance Insurance [facility] Advance Directives * Full Code (Latest [...] 12:33 PM 10/11/2016 3:25 PM Care Teams Lock Stitch Channeler Relationship Specialty Start Date End Date Camila Rincon APRN-FRAN [address] [place] [phone] PCP - General Nurse Practitioner 05/11/22
[2025-02-05 11:13] LABS: Free T4 Free Thyroxine 1.15 ng/dL (0.78-2.19)
== END 2025-02-05 10:01 | disposition home or self-care (01) ==
LOC: ANHLAB 10:01
PROVIDERS: PCP Nurse Practitioner Adult Health; Visit Provider Nurse Practitioner Adult Health
DX: R79.89 Other specified abnormal findings of blood chemistry (principal)
CPT/HCPCS: 36415; 84439